=== PATIENT | female | born 1990 | race Caucasian/White ===

== ENCOUNTER → 2018-10-30 | Outpatient (CLI) | payer OTHER | LOC: DIA.ED 15:11 | DX: O24.419 Gestational diabetes mellitus in pregnancy, unspecified control (principal); Z3A.28 28 weeks gestation of pregnancy | CPT/HCPCS: G0108 ==

== ENCOUNTER → 2018-12-11 | Outpatient (CLI) | payer OTHER | LOC: DIA.ED 12-10 10:44 | DX: O24.419 Gestational diabetes mellitus in pregnancy, unspecified control (principal); Z3A.38 38 weeks gestation of pregnancy | CPT/HCPCS: G0108 ==

== ENCOUNTER 2019-01-09 05:14 | Inpatient (IN) | payer OTHER ==
[~2019-01-09] VITALS: Ht 154.9 cm; Wt 72.7 kg
[2019-01-09] VITALS (64 sets, daily range): BP systolic 100–148; BP diastolic 61–96; PULSE 59–130; TEMP 98–99.6
[2019-01-09 06:46] LABS: HEMATOCRIT 40.7 % (37.0-47.0); MEAN CELL VOLUME 93 fl (80.0-100.0); MEAN CORPUSCULAR HEMOGLOBIN 30 pg (27.0-31.0); MEAN CORPUSCULAR HGB CONC 32 g/dl (33.0-37.0); MEAN PLATELET VOLUME 13.7 fl (7.4-10.4); PLATELET COUNT 165 K/mm3 (130-400); RED BLOOD COUNT 4.38 M/mm3 (4.10-5.30); REDCELL DISTRIBUTION WIDTH-CV 15.8 % (11.5-14.5)
[2019-01-09] MEDS ORDERED: PRENATAL (07:10)
[2019-01-09] MEDS ORDERED: FERRETTS I40 MG/15 M PO (07:11)
[2019-01-09 07:55] LABS: BAND 5 % (0-10); LYMPHOCYTE 22 % (20.0-51.0); METAMYELOCYTE 1 % (0-0); NEUTROPHILS 67 % (42.0-75.2); PLATELET ESTIMATE NORMAL (NORMAL); POLYCHROMASIA 1+; SPHEROCYTE 1+; TEAR DROP CELLS 1+
--- NOTE | 2019-01-09 08:20 | NUR ---
Dr. Stern at bedside. Reviews FHR strip. SVE per provider /-1. Orders that once hot tub is ready patient may get in tub and labor.
--- NOTE | 2019-01-09 08:42 | NUR ---
Orders per Dr. Stern that patient may get up to hot tub. Patient off EFM and assisted in hot tub. Safety reviewed.
--- NOTE | 2019-01-09 10:00 | NUR ---
Brina Cedillo PASTE MIXER LIQUID at bedside. See epidural documentation. 1025- Patient repositioned WL following epidural. Updated on plan of care and safety reviewed.
--- NOTE | 2019-01-09 11:00 | NUR ---
See physician notification. 1105- Discussing plan of care with patient including recommendation per physician for Pitocin augmentation. Patient would like to wait until another recheck and if unchanged she agrees to Pitocin augmentation.
--- NOTE | 2019-01-09 12:22 | NUR ---
Dr. Sevilla at bedside. Reive plan of care, patient denies questions. Orders to check one more blood glucose- 74. Orders to not obtain further blood glucose levels. No further orders at this time.
--- NOTE | 2019-01-09 16:20 | NUR ---
Dr. Sevilla at bedside, reviews FHR strip and contraction pattern. Updated on recent SVE. No new orders recieved.
--- NOTE | 2019-01-09 23:00 | NUR ---
1800- Bedside report from THO Odom. Pitocin infusing at 12mU per protocol. 1829- SVE 7-/+1 by THO Casillas. updated. 1914- SVE -/+1 by this RN. 1944- SVE 8-/+1 by this RN. MD updated. 2029- SVE 8-/+2 by this RN. Patient repositioned to upright. FHR tachycardia noted on monitor. VSS. 2114- Anterior Lip/+2. MD updated. 2139- at bedside to assess. Cervix lip noted and able to be recessed with pushing. RN instructed to start pushing with patient. Agudelo catheter removed. 50ml bloody/clot urine noted. 2199- RN continues to push with patient. MD on unit and updated. 2204- MD at bedside. Labor room set up for delivery. Patient continues to push with contractions with MD. 2220- of viable baby boy. Cord clamped and cut by FOB. Cord blood obtained. Pitocin off. 2224- Spontaneous delivery of intact placenta. Pitocin infusing at 333 ml/hr per protocol. Fundus massaged to firm by . 1st degree laceration repaired by MD. Pericare provided. Ice pack applied. 2229- PP Recovery.
[2019-01-10] VITALS (15 sets, daily range): BP systolic 54–122; BP diastolic 26–83; PULSE 79–136; TEMP 97.7–98.9
--- NOTE | 2019-01-10 01:00 | NUR ---
RN called to bedside. Patient has complaints of feeling faint, ringing in ears, and seeing stars. Head of bed lowered. Fundal massaged performed. Golf-ball sized clot expressed with no free flow noted. RN remains at bedside. Another fundal massage performed with no free flow or clots noted. Uterus is firm and at the umbilicus. Patient continues to feel faint. oracle ebs developer notified. THO Casillas administered Ephedrine. See eMAR. BP increased with 1 dose of Ephedrine. Patient's mother is upset and wants us to call a physician KAROLINE. RN explained to patient's mother that there are interventions we take before we call a physician. Patient's mother demands that patient be seen by physician now. Patient and mother exchange words and mother left the room. RN explained to patient the process we take to deal with situations like this and patient and express understanding. RN gave patient the option to call physician and she stated she wanted to "wait awhile". Patient states she already is feeling better and is no longer having symptoms at this time. Will continue to monitor.
--- NOTE | 2019-01-10 01:30 | NUR ---
Straight cath performed. 100ml of dark brown,murky urine drained from bladder. Fundal check performed by THO Casillas. Fundus firm and midline at the umbilicus. 500ml LR bolus infusing.
--- NOTE | 2019-01-10 03:00 | NUR ---
Patient requesting to use restroom. Patient up to restroom with assist of 2. Patient complains of ringing in the ears after sitting on the toilet. Patient was quickly transferred to a wheelchair and removed from bathroom with assist of 2. Patient states "I feel better" quickly. Patient transferred to by wheelchair. Patient denies need for straight catheterization at this time. Patient will try to void again in 1 hour.
--- NOTE | 2019-01-10 04:00 | NUR ---
Patient up to restroom with assist of 2. Patient unable to void at this time. Straight cath performed. Rust colored urine noted. 250ml out.
--- NOTE | 2019-01-10 06:38 | NUR ---
PT SLEEPING. REPORT RECEIVED FROM OFF GOING RNFABRICIO. CARE TAKEN OVER BY THIS RN.
[2019-01-10] MEDS ORDERED: IBU600 MG PO (08:32)
[2019-01-11 07:30] VITALS: BP 112/68; PULSE 75; TEMP 98
--- NOTE | 2019-01-11 11:00 | NUR ---
Discharge instructions given, pt verbalizes understanding. No further questions noted. 1115:Bands matched and hugs tag removed.
== END 2019-01-11 11:35 | disposition home or self-care (01) | DRG 807 ==
LOC: LDRO 05:14 → OB 06:00 → LDR 06:00 → OB 01-10 03:00
PROVIDERS: Obstetrics & Gynecology; ADMIT Obstetrics & Gynecology
PROC: 10E0XZZ Delivery of Products of Conception, External Approach (ICD-10-PCS; principal; 2019-01-09)
PROC: 0HQ9XZZ Repair Perineum Skin, External Approach (ICD-10-PCS; 2019-01-09)
DX: O42.92 Full-term premature rupture of membranes, unspecified as to length of time between rupture and onset of labor (principal); Z37.0 Single live birth; O24.420 Gestational diabetes mellitus in childbirth, diet controlled; O70.0 First degree perineal laceration during delivery; O99.02 Anemia complicating childbirth; D64.9 Anemia, unspecified; O35.8XX0 Maternal care for other (suspected) fetal abnormality and damage, not applicable or unspecified; Z3A.39 39 weeks gestation of pregnancy
CPT/HCPCS: J2590; J2795; J7120